=== PATIENT | male | born 1985 | race Caucasian/White ===

== ENCOUNTER 2019-08-28 00:50 | Emergency (ER) | payer BC ==
[~2019-08-28] VITALS: Ht 170.2 cm; Wt 120.0 kg
[2019-08-28] MEDS ORDERED: LAMO100T8 PO (01:02)
[2019-08-28] MEDS ORDERED: ALPR1TAB2 PO (01:02)
[2019-08-28] MEDS ORDERED: BUPR1FIL5 SL (01:02)
[2019-08-28] MEDS ORDERED: MAALOX/HYOSCYAMINE/LIDOCAINE 45 ML BTL ONE (01:14)
[2019-08-28] MEDS ORDERED: DIPHENHYDRAMINE 25 MG CAPSULE ONE (01:14)
[2019-08-28] MEDS ORDERED: DIPHENHYDRAMINE 25 MG CAPSULE PO ONE (01:30)
[2019-08-28] MEDS ORDERED: MAALOX/HYOSCYAMINE/LIDOCAINE 45 ML BTL PO ONE (01:30)
[2019-08-28] MEDS ORDERED: KETOROLAC 30 MG/1 ML ONE (01:55)
[2019-08-28] MEDS ORDERED: KETOROLAC 60 MG/2 ML ONE (01:57)
[2019-08-28 01:59] LABS: BASOPHILS # (AUTO) 0.04 x10^3/uL (0-0.1); BASOPHILS % (AUTO) 0 % (0-1); EOSINOPHILS # (AUTO) 0.12 x10^3/uL (0-0.4); EOSINOPHILS % (AUTO) 1 % (1-7); LYMPHOCYTES # (AUTO) 3.44 x10^3/uL (1-3.4); LYMPHOCYTES % (AUTO) 20 % (22-44); MD NO; MEAN CORPUSCULAR HEMOGLOBIN 30.4 pg (27.5-34.5); MEAN CORPUSCULAR VOLUME 89.3 fL (81-97); MEAN PLATELET VOLUME 7.6 fL (7.4-10.4); MONOCYTES # (AUTO) 0.67 x10^3/uL (0.2-0.8); MONOCYTES % (AUTO) 4 % (2-9); NEUTROPHILS # (AUTO) 12.83 x10^3/uL (1.8-6.8); NEUTROPHILS % (AUTO) 75 % (42-75); PLATELET COUNT 309 x10^3/uL (130-400); RED BLOOD COUNT 5.53 x10^6/uL (4.38-5.82); RED CELL DISTRIBUTION WIDTH 13.3 % (9.4-14.8)
[2019-08-28] MEDS ORDERED: KETOROLAC 30 MG/1 ML IM ONE (02:00)
--- NOTE | 2019-08-28 02:00 | NUR ---
PT MEDICATED PER EMAR. RESTING ON GURNEY W/ CALL LIGHT IN REACH, VS STABLE. AWAITING LAB RESULTS.
--- NOTE | 2019-08-28 02:04 | NUR ---
RECEIVED REPORT FROM MONCHO MENDOZA TO ASSUME CARE OF PT. AT THIS TIME.
[2019-08-28 02:06] LABS: ALANINE AMINOTRANSFERASE 71 U/L (12-78); ALBUMIN 3.9 g/dL (3.4-5.0); ANION GAP 8 mmol/L (5-15); CALCIUM 9.4 mg/dL (8.5-10.1); CHLORIDE 107 mmol/L (98-107); CREATININE 0.88 mg/dL (0.7-1.3)
[2019-08-28 02:08] LABS: ALKALINE PHOSPHATASE 66 U/L (45-117); BILIRUBIN,TOTAL 0.5 mg/dL (0.2-1.0)
[2019-08-28] MEDS ORDERED: SODIUM CHLORIDE FLUSH 10ML SYR IVF ONE (02:30)
--- NOTE | 2019-08-28 02:33 | NUR ---
IV ESTABLISHED FOR CT. CT AWARE. PT. REPORT HE HAS NO ABD PAIN AT THIS TIME AFTER MEDS.
[2019-08-28] MEDS ORDERED: OMNIPAQUE 350 MG/ML, 100ML BOTTLE ONE (02:44)
[2019-08-28 03:10] VITALS: BP 136/70
== END 2019-08-28 03:12 | disposition home or self-care (01) ==
LOC: ED 02:53
DX: K29.00 Acute gastritis without bleeding (principal); R10.13 Epigastric pain; T78.1XXA Other adverse food reactions, not elsewhere classified, initial encounter; M79.10 Myalgia, unspecified site; R20.0 Anesthesia of skin; X58.XXXA Exposure to other specified factors, initial encounter
CPT/HCPCS: 36415; 74177; 80053; 83690; 85025; 96372; 99285; J1885; Q0163; Q9967

== ENCOUNTER 2019-08-28 08:38 | Emergency (ER) | payer BC ==
[~2019-08-28] VITALS: Ht 170.2 cm; Wt 120.0 kg
[~2019-08-28 08:38] MED LIST: ALPR1TAB2 PO; BUPR1FIL5 SL; LAMO100T8 PO
[2019-08-28] MEDS ORDERED: SODIUM CHLORIDE 0.9% 1,000ML IVBOLUS ONE (09:30)
[2019-08-28] MEDS ORDERED: EPINEPHRINE 1 MG/ML, 1ML SQ ONE (09:30)
[2019-08-28] MEDS ORDERED: LORazepam 2 MG/ML, 1ML IVPush ONE (09:30)
[2019-08-28] MEDS ORDERED: methylPREDNISolone SOD SUCC 125 MG/2 ML IVPush ONE (09:30)
[2019-08-28] MEDS ORDERED: FAMOTIDINE 20 MG/2 ML IVPush ONE (09:30)
[2019-08-28] MEDS ORDERED: SODIUM CHLORIDE FLUSH 10ML SYR IVF ONE (09:30)
[2019-08-28] MEDS ORDERED: DIPHENHYDRAMINE 50 MG/ML, 1ML IVPush ONE ×2 (09:30→11:30)
[2019-08-28] MEDS ORDERED: DIPHENHYDRAMINE 50 MG/ML, 1ML ONE ×2 (10:11→11:53)
[2019-08-28] MEDS ORDERED: methylPREDNISolone SOD SUCC 125 MG/2 ML ONE (10:11)
[2019-08-28] MEDS ORDERED: EPINEPHRINE 1 MG/ML, 1ML ONE (10:11)
[2019-08-28] MEDS ORDERED: FAMOTIDINE 20 MG/2 ML ONE (10:12)
--- NOTE | 2019-08-28 10:33 | NUR ---
RN to bedside after patient assessed by provider. Orders placed, primary RN attempted to initiated intravenous access. Assisted by task RN. Primary RN returned, administered medications per order. Updated vital signs (vital signs stable [see flowsheet]) Patient now resting comfortably.
--- NOTE | 2019-08-28 11:01 | NUR ---
Provider to bedside for reevaluation. Awaiting further orders or disposition
[2019-08-28 11:40] LABS: BASOPHILS # (AUTO) 0.04 x10^3/uL (0-0.1); BASOPHILS % (AUTO) 0 % (0-1); EOSINOPHILS # (AUTO) 0.04 x10^3/uL (0-0.4); EOSINOPHILS % (AUTO) 0 % (1-7); LYMPHOCYTES # (AUTO) 2.48 x10^3/uL (1-3.4); LYMPHOCYTES % (AUTO) 18 % (22-44); MD NO; MEAN CORPUSCULAR HEMOGLOBIN 30.4 pg (27.5-34.5); MEAN CORPUSCULAR HGB CONC 33.7 g/dL (33.2-36.2); MEAN CORPUSCULAR VOLUME 90.1 fL (81-97); MONOCYTES # (AUTO) 0.73 x10^3/uL (0.2-0.8); MONOCYTES % (AUTO) 5 % (2-9); NEUTROPHILS # (AUTO) 10.66 x10^3/uL (1.8-6.8); NEUTROPHILS % (AUTO) 76 % (42-75); PLATELET COUNT 318 x10^3/uL (130-400); RED BLOOD COUNT 5.83 x10^6/uL (4.38-5.82); RED CELL DISTRIBUTION WIDTH 13.5 % (9.4-14.8)
[2019-08-28 11:41] LABS: HEMOGRAM NOTE RECHECKED
[2019-08-28 11:42] LABS: ALBUMIN 3.9 g/dL (3.4-5.0); ANION GAP 8 mmol/L (5-15); CALCIUM 9.1 mg/dL (8.5-10.1); CHLORIDE 108 mmol/L (98-107); CREATININE 0.89 mg/dL (0.7-1.3)
--- NOTE | 2019-08-28 12:02 | NUR ---
Rn to bedside, reviewed blood product consent form. Reviewed primary concern of allergic reaction, patient verbalized understanding as is undergoing treatment for allergic reaction. Patient signed consent form. RN then administered medications.
[2019-08-28 12:35] VITALS: BP 118/60
[2019-08-28 12:47] VITALS: BP 114/64
[2019-08-28 13:52] VITALS: BP 106/62
[2019-08-28 14:16] VITALS: BP 109/64
[2019-08-28 14:45] VITALS: BP 113/61
--- NOTE | 2019-08-28 14:47 | NUR ---
REPORT RECEIVED FROM MONCHO PITT. ASSUMED CARE
--- NOTE | 2019-08-28 15:24 | NUR ---
NOTICED THAT PTS BLOOD TUBING WAS [facility] TUBING. CALLED BLOOD BANK TO NOTIFY THEM. BLOOD BANK EXPLAINED THAT THE TUBING NEEDS TO BE TO SWITCHED TO THE FILTER TUBING.
[2019-08-28] MEDS ORDERED: NICOTINE 14MG/24 HR PATCH.TD24 TD ONE (15:30)
--- NOTE | 2019-08-28 15:45 | NUR ---
BLOOD TUBING SWITCHED
[2019-08-28] MEDS ORDERED: NICOTINE 14MG/24 HR PATCH.TD24 ONE (15:49)
--- NOTE | 2019-08-28 15:53 | NUR ---
PT MEDICATED PER MAR
[2019-08-28 16:30] VITALS: BP 106/72
== END 2019-08-28 16:37 | disposition home or self-care (01) ==
LOC: ED 09:28
DX: T78.3XXA Angioneurotic edema, initial encounter (principal)
CPT/HCPCS: 36415; 80048; 82040; 85025; 86850; 86900; 96372; 96374; 96375; 96376; 99285; J0171; J1200; J2930; J3490; P9017

== ENCOUNTER 2019-08-30 02:01 | Emergency (ER) | payer BC ==
[~2019-08-30] VITALS: Ht 170.2 cm; Wt 120.8 kg
[2019-08-30] MEDS ORDERED: MORPHINE SULFATE 4 MG/ML, 1ML IVPush PRN (02:30)
[2019-08-30] MEDS ORDERED: SODIUM CHLORIDE FLUSH 10ML SYR IVF ONE (02:30)
[2019-08-30] MEDS ORDERED: ONDANSETRON 2MG/ML, 2ML IVPush ONE (02:30)
--- NOTE | 2019-08-30 02:30 | NUR ---
THIS IS A 33 YO MALE COMING IN FOR "I HAVE A KIDNEY STONE". PATIENT C/O RLQ ABD PAIN RADIATING TO RIGHT FLANK AND SCROTUM. PATIENT STATES IT IS 9.5/10 PAIN, STARTING AROUND 2100 LAST NIGHT. PATIENT STATES HE HAS HX OF KIDNEY STONES IN PAST. VSS, A&OX4, SPO2 AND BP MONITORING IN PLACE. CALL LIGHT IN REACH
[2019-08-30] MEDS ORDERED: ONDANSETRON 2MG/ML, 2ML ONE (02:34)
[2019-08-30] MEDS ORDERED: MORPHINE SULFATE 4 MG/ML, 1ML ONE (02:34)
[2019-08-30] MEDS ORDERED: KETOROLAC 30 MG/1 ML ONE (02:44)
--- NOTE | 2019-08-30 02:45 | NUR ---
PIV PLACED, PATIENT MEDICATED PER EMAR. TOLERATED WELL. AMBULATORY WITH STEADY GAIT TO RESTROOM, UA CUP PROVIDED.
[2019-08-30 02:55] LABS: BASOPHILS # (AUTO) 0.01 x10^3/uL (0-0.1); BASOPHILS % (AUTO) 0 % (0-1); EOSINOPHILS # (AUTO) 0.01 x10^3/uL (0-0.4); EOSINOPHILS % (AUTO) 0 % (1-7); LYMPHOCYTES # (AUTO) 2.47 x10^3/uL (1-3.4); LYMPHOCYTES % (AUTO) 30 % (22-44); MD NO; MEAN CORPUSCULAR HEMOGLOBIN 30.6 pg (27.5-34.5); MEAN CORPUSCULAR HGB CONC 34.3 g/dL (33.2-36.2); MEAN CORPUSCULAR VOLUME 89.3 fL (81-97); MEAN PLATELET VOLUME 7.8 fL (7.4-10.4); MONOCYTES % (AUTO) 5 % (2-9); NEUTROPHILS # (AUTO) 5.51 x10^3/uL (1.8-6.8); NEUTROPHILS % (AUTO) 66 % (42-75); PLATELET COUNT 337 x10^3/uL (130-400); RED CELL DISTRIBUTION WIDTH 13.5 % (9.4-14.8)
[2019-08-30] MEDS ORDERED: KETOROLAC 30 MG/1 ML IVPush ONE (03:00)
[2019-08-30 03:05] LABS: ALANINE AMINOTRANSFERASE 43 U/L (12-78); ALBUMIN 3.7 g/dL (3.4-5.0); ANION GAP 7 mmol/L (5-15); CALCIUM 8.8 mg/dL (8.5-10.1); CHLORIDE 106 mmol/L (98-107); CREATININE 0.82 mg/dL (0.7-1.3)
--- NOTE | 2019-08-30 03:06 | NUR ---
UA COLLECTED AND SENT
[2019-08-30 03:07] LABS: ALKALINE PHOSPHATASE 59 U/L (45-117); BILIRUBIN,TOTAL 0.5 mg/dL (0.2-1.0); TOTAL PROTEIN 6.9 g/dL (6.4-8.2)
[2019-08-30 03:18] LABS: CULTURE INDICATED? NO; MICROSCOPIC AUTO
--- NOTE | 2019-08-30 03:25 | NUR ---
PATIENT TO CT
[2019-08-30] MEDS ORDERED: METHOCARBAMOL 750 MG TABLET ONE (03:55)
[2019-08-30 03:56] VITALS: BP 128/86
[2019-08-30] MEDS ORDERED: METHOCARBAMOL 750 MG TABLET PO ONE (04:00)
--- NOTE | 2019-08-30 04:00 | NUR ---
PATIENT MEDICATED PER EMAR, TOLERATED WELL
--- NOTE | 2019-08-30 04:47 | NUR ---
Patient given discharge instructions and they have confirmed that they understand the instructions. Patient ambulatory with steady gait.
== END 2019-08-30 04:50 | disposition home or self-care (01) ==
LOC: ED 03:27
DX: R31.29 Other microscopic hematuria (principal); R10.31 Right lower quadrant pain; R11.2 Nausea with vomiting, unspecified
CPT/HCPCS: 36415; 74176; 80053; 81001; 83690; 85025; 96374; 96375; 99284; J1885; J2405

== ENCOUNTER 2020-08-12 11:10 | Emergency (ER) | payer BC, OTHER ==
[~2020-08-12] VITALS: Ht 170.2 cm; Wt 120.9 kg
[2020-08-12] MEDS ORDERED: CYCLOBENZAPRINE 10 MG TABLET PO ONE (11:30)
[2020-08-12] MEDS ORDERED: KETOROLAC 30 MG/1 ML IM ONE (11:30)
[2020-08-12] MEDS ORDERED: KETOROLAC 30 MG/1 ML ONE (11:57)
[2020-08-12] MEDS ORDERED: CYCLOBENZAPRINE 10 MG TABLET ONE (11:57)
[2020-08-12 12:04] LABS: BASOPHILS % (AUTO) 0 % (0-1); EOSINOPHILS % (AUTO) 1 % (1-7); LYMPHOCYTES % (AUTO) 19 % (22-44); MEAN CORPUSCULAR HGB CONC 35.2 g/dL (33.2-36.2); MEAN PLATELET VOLUME 7.6 fL (7.4-10.4); MONOCYTES % (AUTO) 6 % (2-9); NEUTROPHILS % (AUTO) 74 % (42-75); PLATELET COUNT 290 x10^3/uL (130-400); RED BLOOD COUNT 4.88 x10^6/uL (4.38-5.82); RED CELL DISTRIBUTION WIDTH 13.6 % (9.4-14.8)
[2020-08-12 12:18] LABS: ALANINE AMINOTRANSFERASE 70 U/L (12-78); ALBUMIN 4.5 g/dL (3.4-5.0); ANION GAP 7 mmol/L (5-15); CALCIUM 9.4 mg/dL (8.5-10.1); CHLORIDE 110 mmol/L (98-107); CREATININE 0.86 mg/dL (0.7-1.3)
[2020-08-12 12:22] LABS: ALKALINE PHOSPHATASE 67 U/L (45-117); BILIRUBIN,TOTAL 0.4 mg/dL (0.2-1.0); TOTAL PROTEIN 7.9 g/dL (6.4-8.2); TROPONIN I < 0.015 ng/mL (0.000-0.045)
[2020-08-12 12:30] LABS: MD SCAN
[2020-08-12] MEDS ORDERED: HYDROcodone/APAP 5/325 TABLET PO ONE (13:30)
[2020-08-12] MEDS ORDERED: HYDROcodone/APAP 5/325 TABLET ONE (14:10)
[2020-08-12 14:12] LABS: TROPONIN I < 0.015 ng/mL (0.000-0.045)
[2020-08-12 15:21] VITALS: BP 156/87
--- NOTE | 2020-08-12 15:22 | NUR ---
PT AMBULATED TO NH AREA, STEADY GAIT.
--- NOTE | 2020-08-12 15:22 | NUR ---
PT REC'VD DISCHARGE INSTRUCTIONS AND EDUCATION. PT HAD NO FURTHER QUESTIONS.
== END 2020-08-12 15:45 | disposition home or self-care (01) ==
LOC: ED 14:29
DX: R07.89 Other chest pain (principal)
CPT/HCPCS: 36415; 71045; 80053; 84484; 85025; 93005; 96372; 99285; J1885